=== PATIENT | male | born 1980 | race Caucasian/White ===

== ENCOUNTER 2021-08-30 14:11 | Emergency (ER) | payer OTHER, SELFPAY ==
--- NOTE | 2021-08-30 14:18 | ED.BACK ---
HPI - Back Pain/Injury General Chief Complaint: Back Pain/Injury Stated Complaint: Lower back pain Time Seen by Provider: 08/30/21 14:25 Source: patient and RN notes reviewed Mode of arrival: ambulatory Limitations: no limitations History of Present Illness HPI Narrative: 41 year old male presents to [facility] care with complaints of right lower back pain since Sunday after he shoveled snow.Patient reports pain is over the right lower back area and does radiate some to his right side, denies any radiation of pain down his legs,no tingling or numbness to extremities. Patient has palpable pain over right SI joint region and increase pain with movement and changing of positions. He denies an difficulty passing his urine or having bowel movement, denies any saddle paraesthesia. MD elicited complaint: back pain Pertinent past history: other (shoveled snow) Onset (ago): day(s) (2) Exacerbating factors: movement Treatments prior to arrival: NSAIDS Related Data Allergies Allergy/AdvReac Type Severity Reaction Status Date / Time No Known Allergies Allergy Verified 08/30/21 14:27 Review of Systems Review of Systems: CONSTITUTIONAL: Denies fever, chills, or sweats. EYES: Denies visual changes, redness, or discharge. ENT: Denies rhinorrhea, congestion, sore throat, or otalgia. CARDIOVASCULAR: Denies chest pain, palpitations, or edema. RESPIRATORY: Denies cough or dyspnea. GASTROINTESTINAL: Denies abdominal pain, nausea, vomiting, or diarrhea. GENITOURINARY: Denies dysuria or hematuria. SKIN: Denies rash or itching. MUSCULOSKELETAL: positive for lower right lumbar region back pain,no other joint pain, or myalgia. NEUROLOGIC: Denies headache, numbness, or weakness. PSYCHIATRIC: Denies anxiety or depression. All systems reviewed & are unremarkable except as noted in HPI and below PMFSH Past Medical History Medical History (Updated 08/30/21 @ 14:50 by Zina Ivan NP) No pertinent past medical history Surgical History Surgical History (Updated 08/30/21 @ 14:50 by Zina Ivan NP) Hx of removal of cyst right neck area Family History Family History (Updated 08/30/21 @ 14:52 by Zina Ivan NP) Father Hypertension Melanoma of eye Sibling Hypertension Mother Carcinoma of colon Grandparent Parkinson disease Social History Social History (Updated 08/30/21 @ 14:52 by Zina Ivan NP) Smoking status: Never smoker Alcohol intake: current Alcohol use details: rare alcohol Substance use: never Living arrangements: with family Additional occupation/education comments: [employer] Gender identity (if verbalized by the patient): Male Comments At time of signature, agree with nursing past medical, surgical, social and family history. There is no relevant family history pertinent to the presenting complaint Exam Narrative: GENERAL: Well-appearing, well-nourished, and in no acute distress. HEAD: Normocephalic, atraumatic. EYES: PERRLA and EOMI. ENT: Nares clear, no rhinorrhea or epistaxis. Mucous membranes moist.TM's normal with good light reflex, throat pink with no lesions or exudates or tonsil enlargement NECK: Supple.no lymphadenopathy CHEST: Clear to auscultation. No respiratory distress.SAO2 99% on room air HEART: Regular rate and rhythm. No murmur heard. Normal peripheral pulses. ABDOMEN: Soft, nontender, nondistended, normal active bowel sounds. EXTREMITIES: Normal range of motion. No edema. Pain to right SI joint area with some radiation to right side, no radiation of pain to buttocks or down leg, denies any tingling or numbness to extremities, no saddle paraesthesia or any difficulty passing urine or stool. Pain increases with movement turning right especially and with changes of position. SKIN: Warm, dry, no rash. NEURO: No focal deficits. Alert and oriented x3. Course Course Level of Care: Express Care Visit Vital Signs Vital signs: Vital Signs Temperature 36.3 C L
[2021-08-30 14:20] VITALS: BP 135/79; PULSE 73; RESP 19; TEMP 36.3; O2SAT 99
== END 2021-08-30 14:45 | disposition home or self-care (01) ==
PROVIDERS: Emergency Provider Registered Nurse
DX: S39.012A Strain of muscle, fascia and tendon of lower back, initial encounter (principal); X50.0XXA Overexertion from strenuous movement or load, initial encounter; X50.3XXA Overexertion from repetitive movements, initial encounter; X50.9XXA Other and unspecified overexertion or strenuous movements or postures, initial encounter; Y93.H1 Activity, digging, shoveling and raking
CPT/HCPCS: 99203; G0463